=== PATIENT | female | born 1945 | race African-American/Black ===

== ENCOUNTER 2020-07-10 10:11 | Outpatient (CLI) | payer MEDICARE, SELFPAY ==
--- NOTE | ~2020-07-10 | XR_ITS ---
EXAMINATION: CT abdomen pelvis wo con, XR abdomen/kub 1V DATE: 07/10/2020 10:34 INDICATION: Left ureteral stone presenting with left flank pain TECHNIQUE: 1. Computed tomography (CT) of the abdomen and pelvis was performed without intravenous contrast. Aut omated exposure control and iterative reconstruction technique were employed. The dose-length product was 166.51 mGy-cm. 2. Single AP view of the abdomen and pelvis was obtained. COMPARISON: 01/04/2018 FINDINGS: CT: Mild opacities at the medial lingula and right middle lobe which could represent atelectasis or pneum onia. Heart size is normal. No pericardial or pleural effusion. There are few clearly defined fluid a ttenuation hepatic cysts, the largest measuring 3.5 cm. Gallbladder, spleen, pancreas and bilateral a drenal glands are normal. Bilateral nephrolithiasis with multiple stones clustered in the inferior ca lyces of both kidneys. The largest on the right measures 5 mm the largest on the left measures 12 mm . There is mild bilateral hydronephrosis without hydroureter or ureteral stones. There is urothelial thickening at the bilateral renal pelvises sees but also without obstructing stone or mass. Asymmetri c cortical thinning at the left kidney likely sequela of prior infection or infarction. Partially dec ompressed bladder is unremarkable. The uterus is not identified and has likely been surgically resect ed. There is moderate colonic diverticulosis with a sigmoid and descending colon predominance. There is no adjacent inflammatory change to suggest diverticulitis. Small bowel and appendix are normal. Se veral phleboliths in the pelvis. No free intraperitoneal gas or fluid. No pathologically enlarged abd ominal or pelvic lymphadenopathy. Mild lumbar levocurvature with mild spondylosis. KUB: The bilateral renal stones are visible at the lower poles of both kidneys. There are also costochondr al calcifications project over the more cephalad aspect of the kidneys. A few the larger phleboliths are visible in the pelvis. Normal bowel gas pattern. IMPRESSION: 1. Bilateral nonobstructing nephrolithiasis at the lower poles of both kidneys. 2. Mild hydronephrosis at both kidneys with urothelial thickening at the renal pelvises but no obstru cting stones or masses. Correlate with urinalysis to exclude associated urinary tract infections. 3. Left renal atrophy. 4. Diverticulosis. 5. Incompletely visualized mild opacities at the lingula and right middle lobe most likely atelectasi s although differential would include pneumonia. Reviewed, dictated and finalized at location A. ER INSTRUCTOR IMPRESSION: 1. Bilateral nonobstructing nephrolithiasis at the lower poles of both kidneys. 2. Mild hydronephrosis at both kidneys with urothelial thickening at the renal pelvises but no obstructing stones or masses. Correlate with urinalysis to excl ude associated urinary tract infections. 3. Left renal atrophy. 4. Diverticulosis. 5. Incompletely visualized mild opacities at the lingula and right middle lobe most likely atelectasis although differential would include pneumonia.
== END 2020-07-10 10:12 | disposition home or self-care (01) ==
LOC: ANHIMG 10:18
PROVIDERS: PCP Family Medicine; Visit Provider Nurse Practitioner Adult Health
DX: N20.1 Calculus of ureter (principal); N13.30 Unspecified hydronephrosis; N26.1 Atrophy of kidney (terminal); K57.90 Diverticulosis of intestine, part unspecified, without perforation or abscess without bleeding; R91.8 Other nonspecific abnormal finding of lung field
CPT/HCPCS: 74018; 74176

== ENCOUNTER 2022-09-28 10:20 | Outpatient (CLI) | payer MEDICARE, SELFPAY ==
--- NOTE | ~2022-09-28 | XR_ITS ---
XR abdomen/kub 1V 09/28/2022 10:44 Indication: Kidney stones Procedure: KUB Comparison: Comparison to multiple prior studies sequentially, with oldest reviewed study dated 01/02. Findings: Bowel gas pattern is nonobstructive. Moderate retained fecal material in the colon. There a re colonic diverticuli outlined by barium. Kidneys are obscured by bowel content. There are pelvic ph leboliths unchanged. No definite renal stones identified. Impression: 1: No acute abdominal abnormality. Reviewed, dictated and finalized at location B. Impression: 1: No acute abdominal abnormality.
== END 2022-09-28 10:21 | disposition home or self-care (01) ==
PROVIDERS: PCP Family Medicine; Visit Provider Nurse Practitioner Adult Health
DX: N20.0 Calculus of kidney (principal)
CPT/HCPCS: 74018